=== PATIENT | male | born 1990 | race Two or more races ===

== ENCOUNTER 2024-03-29 15:25 | Emergency (ER) | payer OTHER ==
[2024-03-29 15:44] VITALS: RESP 18; TEMP 97.8
--- NOTE | 2024-03-29 16:29 | ED ---
Trauma HPI - General Chief Complaint: Extremity Injury, Upper Stated Complaint: cut finger Time Seen by Provider: 03/29/24 15:38 Source: patient, patient representative Mode of arrival: ambulatory Limitations: no limitations - History of Present Illness Initial Comments: This is a 33-year-old male presenting with left middle finger crush injury (07/12) at work and at 1400 today. Patient's states, via patient representative, the tip of his finger was accidentally crushed by a heavy metal tube he was working with. Endorses some numbness at tip of finger but is otherwise able to flex/extend finger tip without issue. Patient states he is right-handed and his tetanus vaccination is up-to-date. Denies other injuries. MD Complaint: injury Onset/Timin -: hour(s) Time: 14:00 Loss of Consciousness: no Location - Extremities: Left: Hand Severity scale (1-10): 4 Consistency: constant Context: Machine or Tool Related Injury Associated Symptoms: denies other symptoms Treatments Prior to Arrival: dressings - Related Data Previous Rx's Medication Instructions Recorded Cephalexin [Keflex] 500 mg PO Q6HR 1 Days #40 cap 03/29/24 Ibuprofen [Motrin] 600 mg PO Q8HR PRN #30 tab 03/29/24 Allergies Allergy/AdvReac Type Severity Reaction Status Date / Time No Known Allergies Allergy Verified 03/29/24 15:35 Review of Systems ROS Statement: Those systems with pertinent positive or pertinent negative responses have been documented in the HPI. ROS Other: All systems not noted in ROS Statement are negative. Past Medical History Past Medical History: No Reported History Past Surgical History: No Surgical Hx Reported Smoking Status: Never smoker Past Alcohol Use History: Occasional Past Drug Use History: None Reported General Exam Limitations: no limitations General appearance: alert, in no apparent distress Head exam: Present: atraumatic, normocephalic, normal inspection Eye exam: Present: normal appearance, PERRL, EOMI. Absent: scleral icterus, conjunctival injection, periorbital swelling ENT exam: Present: normal exam, mucous membranes moist Neck exam: Present: normal inspection. Absent: tenderness, meningismus, lymphadenopathy Respiratory exam: Present: normal lung sounds bilaterally. Absent: respiratory distress, wheezes, rales, rhonchi, stridor Cardiovascular Exam: Present: regular rate, normal rhythm, normal heart sounds. Absent: systolic murmur, diastolic murmur, rubs, gallop, clicks GI/Abdominal exam: Present: soft, normal bowel sounds. Absent: distended, tenderness, guarding, rebound, rigid Extremities exam: Present: full ROM, tenderness (Some tenderness at distal tip of left third digit), normal capillary refill, other (Small hole with tissue protruding at the tip of left third digit with no obvious exposure of bone. Subungual hemorrhage/ecchymosis without obvious damage to nail.). Absent: pedal edema, joint swelling, calf tenderness Back exam: Present: normal inspection Neurological exam: Present: alert, oriented X3, CN II-XII intact Psychiatric exam: Present: normal affect, normal mood Skin exam: Present: warm, dry, intact, normal color. Absent: rash Course Vital Signs 03/29/24 03/29/24 15:36 17:46 Temperature 97.8 F 97.8 F Pulse Rate 83 75 Respiratory 18 18 Rate Blood Pressure 126/71 132/77 O2 Sat by Pulse 100 98 Oximetry Medical Decision Making - Medical Decision Making Was pt. sent in by a medical professional or institution (, PA, HOUSEKEEPER NANNY, urgent care, hospital, or detention...) When possible be specific @ -No Did you speak to anyone other than the patient for history (EMS, parent, family, police, friend...)? What history was obtained from this source @ -No Did you review nursing and triage notes (agree or disagree)? Why? @ -I reviewed and agree with nursing and triage notes Were old charts reviewed (outside hosp., previous admission, EMS record, old EKG, old radiological studies, urgent care reports/EKG's, detention records)? Report findings @ -No old charts were reviewed Differential Diagnosis (chest pain, altered mental status, abdominal pain women, abdominal pain men, vaginal bleeding, weakness, fever, dyspnea, syncope, headache, dizziness, GI bleed, back pain, seizure, CVA, palpatations, mental health, musculoskeletal)? @ -Finger contusion, fracture, crush injury, cellulitis EKG interpreted by me (3pts min.). @ -Not done X-rays interpreted by me (1pt min.). @ -Left finger x-ray shows displaced comminuted fracture of the left third digit distal phalange. CT interpreted by me (1pt min.). @ -None done U/S interpreted by me (1pt. min.). @ -None done What testing was considered but not performed or refused? (CT, X-rays, U/S, labs)? Why? @ -None What meds were considered but not given or refused? Why? @ -Patient declined any medication for pain control while in ER Did you discuss the management of the patient with other professionals (professionals i.e. Dr., PA, HOUSEKEEPER NANNY, lab, RT, psych nurse, social media analyst, company miner blasting, teacher, certification officer, spring encaser)? Give summary @ -No Was smoking cessation discussed for >3mins.? @ -No Was critical care preformed (if so, how long)? @ -No Were there social determinants of health that impacted care today? How? (Homelessness, low income, unemployed, alcoholism, drug addiction, transportation, low edu. Level, literacy, decrease access to med. care, alf, rehab)? @ -No Was there de-escalation of care discussed even if they declined (Discuss DNR or withdrawal of care, Hospice)? DNR status @ -No What co-morbidities impacted this encounter? (DM, HTN, Smoking, COPD, CAD, Cancer, CVA, ARF, Chemo, Hep., AIDS, mental health diagnosis, sleep apnea, morbid obesity)? @ -None Was patient admitted / discharged? Hospital course, mention meds given and route, prescriptions, significant lab abnormalities, going to OR and other pertinent info. @ -Left finger x-ray shows displaced comminuted fracture of the left third digit distal phalange. Patient declined pain medication while in ER. Finger soaked in Betadine bath. Wrapped with 4 x 4 gauze, taped and finger splint applied. Given 1 g IM Rocephin and initial p.o. Keflex dose. P.o. Keflex sent [facility] as well as Motrin 600 for pain control. Patient discharged with T3 starter pack. Advised RICE and follow-up with orthopedics on Sunday. Discussed patient with Dr. Campos. Undiagnosed new problem with uncertain prognosis? @ -No Drug Therapy requiring intensive monitoring for toxicity (Heparin, Nitro, Insulin, Cardizem)? @ -No Were any procedures done? @ -No Diagnosis/symptom? @ -Open comminuted fracture of left finger Acute, or Chronic, or Acute on Chronic? @ -Acute Uncomplicated (without systemic symptoms) or Complicated (systemic symptoms)? @ -Complicated Side effects of treatment? @ -No Exacerbation, Progression, or Severe Exacerbation? @ -No Poses a threat to life or bodily function? How? (Chest pain, [place], [place], pneumonia, PE, COPD, DKA, ARF, appy, cholecystitis, CVA, Diverticulitis, Homicidal, Suicidal, threat to staff... and all critical care pts) @ -No Disposition Clinical Impression: Crushing injury of finger, Open comminuted fracture of distal phalanx of finger Disposition: HOME SELF-CARE Condition: Good Instructions (If sedation given, give patient instructions): Finger Fracture (ED), Acute Wound Care (ED) Prescriptions: Cephalexin [Keflex] 500 mg PO Q6HR 1 Days #40 cap Ibuprofen [Motrin] 600 mg PO Q8HR PRN #30 tab PRN Reason: Pain Is patient prescribed a controlled substance at d/c from ED?: No Referrals: None,Stated [Primary Care Provider] - 1-2 days Dago Raphael MD [STAFF PHYSICIAN] - 1-2 days Farhan Saini DO [Doctor of Osteopathic Medicine] - 1-2 days Time of Disposition: 17:19
[2024-03-29] MEDS: cefTRIAXone 1,000 MG VIAL (IM USE) IM STA (16:41)
--- NOTE | 2024-03-29 16:57 | XR ---
EXAMINATION TYPE: XR finger LT DATE OF EXAM: 03/29/2024 4:48 PM COMPARISON: None. CLINICAL INDICATION: Male, 33 years old with history of Third digit tip crushed; [facility] TECHNIQUE: XR finger LT Frontal, lateral and oblique views were obtained. FINDINGS: Comminuted displaced fracture of the third digit distal phalangeal tuft. Adjacent soft tiss ue swelling and laceration. Additional osseous structures without acute fracture or dislocation. IMPRESSION: Comminuted displaced fracture of the third digit distal phalangeal tuft. [facility], , 03/29/2024 4:55 PM
[2024-03-29] MEDS: CEPHALEXIN 500 MG CAP PO STA (17:42)
[2024-03-29 17:47] VITALS: BP 132/77; PULSE 75
== END 2024-03-29 17:46 | disposition home or self-care (01) ==
LOC: EC 15:25
DX: S62.633B Displaced fracture of distal phalanx of left middle finger, initial encounter for open fracture (principal); W23.0XXA Caught, crushed, jammed, or pinched between moving objects, initial encounter; Y99.0 Civilian activity done for income or pay
CPT/HCPCS: 96372; 99283